=== PATIENT | female | born 1985 | race Two or more races ===

== ENCOUNTER → 2024-09-28 | Outpatient (CLI) | payer MEDICAID | END | disposition home or self-care (01) | LOC: LAB 10:14 | PROVIDERS: ATTEND Obstetrics & Gynecology | DX: O03.9 Complete or unspecified spontaneous abortion without complication (principal) | CPT/HCPCS: 36415; 84702 ==

== ENCOUNTER → 2024-09-30 | Outpatient (CLI) | payer MEDICAID ==
[2024-09-30 09:22] LABS: Basophils # (auto) 0 10 ^3/uL (0-0.2); Basophils % (auto) 0.4 % (0.0-2.0); Eosinophils # (auto) 0.1 10 ^3/uL (0-0.8); Eosinophils % (auto) 0.8 % (0.0-7.0); Hematocrit 37.9 % (36.0-46.0); Hemoglobin 12.7 g/dL (12.2-16.2); Lymphocytes % (auto) 19.5 % (10.0-50.0); Mean Corpuscular Hemoglobin 30.2 pg (28.0-32.0); Mean Corpuscular Hgb Conc. 33.4 g/dL (32.0-36.0); Mean Corpuscular Volume 90.5 fL (80.0-100.0); Monocytes # (auto) 0.4 10 ^3/uL (0-1.3); Monocytes % (auto) 4.4 % (0.0-12.0); Neutrophils # (auto) 7.7 10 ^3/uL (1.6-8.6); Neutrophils % (auto) 74.9 % (37.0-80.0); Nucleated Red Blood Cells % 0.1 %; Platelet Count (auto) 284 10^3/uL (140-450); Red Blood Cells 4.19 10^6/uL (4.0-5.20); Red Cell Distribution Width 14.3 % (11.8-14.3); White Blood Cell 10.2 10^3/uL (4.4-10.8)
[2024-09-30 09:37] LABS: Amphetamine Screen, Urine Neg (NEGATIVE); Barbiturate Scree,Urine Neg (NEGATIVE); Benzodiazephine Screen, Urine Neg (NEGATIVE); Cannabinoid Screen, Urine Neg (NEGATIVE); Cocaine Screen, Urine Neg (NEGATIVE); Opiate Scree,Urine Neg (NEGATIVE); Phencyclidine Screen, Urine Neg (NEGATIVE)
[2024-09-30 09:43] LABS: Alanine Aminotransferase 13 U/L (7-40); Albumin 4.2 g/dL (3.2-4.8); Alkaline Phosphatase 94 U/L (46-116); Anion Gap 8 (5-15); Aspartate Aminotransferase 9 U/L (13-40); BUN/Creatinine Ratio 10.6 (10.0-20.0); Bilirubin, Total 0.4 mg/dL (0.2-1.0); Blood Urea Nitrogen 7 mg/dL (9-23); Calcium 9.3 mg/dL (8.7-10.4); Carbon Dioxide 27 mmol/L (20-31); Chloride 104 mmol/L (98-107); Cholesterol 186 mg/dL (< 200); Glucose 108 mg/dL (74-106); HDL Cholesterol 50 mg/dL (40-59); LDL Cholesterol 124 mg/dL (< 100); Sodium 139 mmol/L (136-145); Total Protein 6.9 g/dL (5.7-8.2); Triglycerides 114 mg/dL (< 150)
[2024-09-30 09:45] LABS: Thyroid Stimulating Hormone 1.56 uIU/mL (0.55-4.78)
[2024-09-30 09:53] LABS: Beta HCG, Quantitative 12100.4 mIU/mL (1.5-4.2)
[2024-10-01 07:06] LABS: RPR Non Reactive (Non Reactive)
[2024-10-01 08:06] LABS: Varicella Zoster IgG Antibody Reactive (Non Reactive)
[2024-10-02 06:06] LABS: Chlamydia Trachomatis, NAA Negative (Negative); Neisseria gonorrhoeae, NAA Negative (Negative)
[2024-10-04 10:06] LABS: QuantiFERON-TB Gold Plus Negative (Negative)
== END | disposition home or self-care (01) ==
LOC: LAB 08:32
PROVIDERS: ATTEND Obstetrics & Gynecology
DX: O03.9 Complete or unspecified spontaneous abortion without complication (principal); Z31.430 Encounter of female for testing for genetic disease carrier status for procreative management; Z36.0 Encounter for antenatal screening for chromosomal anomalies; N39.0 Urinary tract infection, site not specified
CPT/HCPCS: 36415; 80053; 80061; 80307; 83036; 84439; 84443; 84702; 85025; 86592; 86703; 86762; 86787; 86850; 86900; 86901; 87086; 87340; 87902

== ENCOUNTER 2025-01-03 08:13 | Emergency (ER) | payer MEDICAID ==
[~2025-01-03] VITALS: Ht 152.4 cm; Wt 118.3 kg
[2025-01-03 09:08] VITALS: BP 131/68; PULSE 92; RESP 16; TEMP 97.7; O2SAT 97
--- NOTE | 2025-01-03 09:10 | ED.PDOC ---
History of Present Illness HPI Comments 39 year old female presents to the ED with a chief complaint of RT flank pain onset today (01/03/25) around 04:00. Patient states she woke up experiencing RT leg pain, believed it was due to sciatica pain, noticed pain was radiated to RT flank. Patient is currently 20 week , OBGYN Dr. Diana. She also noticed abdominal discomfort, described as contractions. PMHx HTN. Denies fever, chills, congestion, nausea, vomiting, diarrhea, heavy lifting, chest pain, shortness of breath, fall, vaginal bleeding. No other symptoms or modifying factors present at this time. Chief Complaint: Flank Pain Time Seen by MD: 08:57 Primary Care Provider: CHRISTIAN Reviewed Notes: Medications, Allergies Allergies: Coded Allergies: NO KNOWN ALLERGIES (Unverified , 01/03/25) Information Source: Patient Mode of Arrival: Ambulatory Severity: Moderate Timing: Hours Duration: Since onset Prehospital treatment: None Past Medical History PAST MEDICAL HISTORY: HTN Surgical History: Denies all surgeries WASTE DUSTER History: No Pertinent WASTE DUSTER History Family History Family History: Unknown Social History Smoker: Non-Smoker Alcohol: Denies ETOH Use Drugs: Denies Drug Use Lives In: Home Constitutional: denies: chills, diaphoresis, fatigue, fever, malaise, sweats, weakness, others EENTM: denies: blurred vision, double vision, ear bleeding, ear discharge, ear drainage, ear pain, ear ringing, eye pain, eye redness, hearing loss, mouth pain, mouth swelling, nasal discharge, nose bleeding, nose congestion, nose pain, photophobia, tearing, throat pain, throat swelling, voice changes, others Respiratory: denies: cough, hemoptysis, orthopnea, SOB at rest, shortness of breath, SOB with excertion, stridor, wheezing, others Cardiovascular: denies: chest pain, dizzy spells, diaphoresis, Dyspnea on exertion, edema, irregular heart beat, left arm pain, lightheadedness, palpitations, PND, syncope, others Gastrointestinal: denies: abdomen distended, abdominal pain, blood streaked bowels, constipated, diarrhea, dysphagia, difficulty swallowing, hematemesis, melena, nausea, poor appetite, poor fluid intake, rectal bleeding, rectal pain, vomiting, others Genitourinary: reports: flank pain (RT), ; denies: abnormal vagina bleeding, burning, dyspareunia, dysuria, frequency, hematuria, incontinence, pain, vagina discharge, urgency, others Neurological: denies: dizziness, fainting, headache, left sided numbness, left sided weakness, numbness, paresthesia, pre-existing deficit, right sided numbness, right sided weakness, seizure, speech problems, tingling, tremors, weakness, others Musculoskeletal: reports: others (RT leg pain); denies: back pain, gout, joint pain, joint swelling, muscle pain, muscle stiffness, neck pain Integumetry: denies: bruises, change in color, change in hair/nails, dryness, laceration, lesions, lumps, rash, wounds, others Allergic/Immunocompromised: denies: Difficulty Healing, Frequent Infections, Hives, Itching, others Hematologic/Lymphatic: denies: anemia, blood clots, easy bleeding, easy bruising, swollen glands, others Endocrine: denies: excessive hunger, excessive sweating, excessive thirst, excessive urination, flushing, intolerance to cold, intolerance to heat, unexplained weight gain, unexplained weight loss, others Psychiatric: denies: anxiety, bipolar disorder, depression, hopeless, panic disorder, schizophrenia, sleepless, suicidal, others All Other Systems: Reviewed and Negative Physical Exam General Appearance: No Apparent Distress, Normal HEENT: Normal ENT Inspection, Pharynx Normal, TMs Normal Neck: Full Range of Motion, Non-Tender, Normal, Normal Inspection Respiratory: Chest Non-Tender, Lungs Clear, No Accessory Muscle Use, No Respiratory Distress, Normal Breath Sounds Cardiovascular: No Edema, No JVD, No Murmur, No Gallop, Normal Peripheral Pulses, Regular Rate/Rhythm Breast Exam: Deferred Gastrointestinal: No Organomegaly, Non Tender, No Pulsatile Mass, Normal Bowel Sounds, Soft Genitalia: Deferred Pelvic: Deferred Rectal: Deferred Extremities: No calf tenderness, Normal capillary refill, Normal inspection, Normal range of motion, Non-tender, No pedal edema Musculoskeletal : Apperance: Normal Neurologic: Alert, buffet waiter/waitress II-XII nml as Tested, No Motor Deficits, Normal Affect, Normal Mood, No Sensory Deficits Cerebellar Function: Normal Reflexes: Normal Skin: Dry, Normal Color, Warm Lymphatic: No Adenopathy Was a procedure done? Was a procedure done?: No Differential Dx Considerations may include: Viral syndrome, ACS , , round ligament pain, urinary tract infection X-Ray, Labs, Meds, VS Vital Signs Date Time Temp Pulse Resp B/P (MAP) Pulse Ox O2 Delivery O2 Flow Rate FiO2 01/03/25 09:09 Room Air* 0 21 01/03/25 09:08 97.7 92 16 131/68 (89) 97 97.7 01/03/25 08:29 97.6 99 16 133/81 (98) 98 Lab Test 01/03/25 09:36 01/03/25 09:14 Range/Units Urine Color Yellow Yellow Urine Clarity Turbid H Clear Urine pH 6.5 5.0-9.0 Urine Specific [place] 1.024 1.001-1.035 Urine Protein 1+ H Negative Urine Ketones 2+ H Negative Urine Blood Negative Negative /uL Urine Nitrite Negative Negative Urine Bilirubin Negative Negative Urine Urobilinogen Normal Negative mg/dL Urine Leukocyte Esterase Negative Negative /uL Urine RBC 5 0 - 4 /hpf Urine Microscopic WBC 3 0-5 /HPF Urine Squamous Epithelial Cells Mod <5 /hpf Urine Bacteria None seen None Seen /hpf Urine Mucus Few None Seen Urine Glucose Normal Normal mg/dL White Blood Count 17.0 H 4.4-10.8 10^3/uL Red Blood Count 4.21 4.0-5.20 10^6/uL Hemoglobin 12.1 L 12.2-16.2 g/dL Hematocrit 37.0 36.0-46.0 % Mean Corpuscular Volume 87.8 80.0-100.0 fL Mean Corpuscular Hemoglobin 28.6 28.0-32.0 pg Mean Corpuscular Hemoglobin Concent 32.6 32.0-36.0 g/dL Red Cell Distribution Width 14.9 H 11.8-14.3 % Platelet Count 274 140-450 10^3/uL Mean Platelet Volume 8.5 6.9-10.8 fL Neutrophils (%) (Auto) 90.4 H 37.0-80.0 % Lymphocytes (%) (Auto) 6.4 L 10.0-50.0 % Monocytes (%) (Auto) 2.9 0.0-12.0 % Eosinophils (%) (Auto) 0.1 0.0-7.0 % Basophils (%) (Auto) 0.2 0.0-2.0 % Neutrophils # (Auto) 15.3 H 1.6-8.6 10 ^3/uL Lymphocytes # (Auto) 1.1 0.4-5.4 10 ^3/uL Monocytes # (Auto) 0.5 0-1.3 10 ^3/uL Eosinophils # (Auto) 0 0-0.8 10 ^3/uL Basophils # (Auto) 0 0-0.2 10 ^3/uL Nucleated Red Blood Cells 0.1 % Sodium Level 135 L 136-145 mmol/L Potassium Level 4.4 3.5-5.1 mmol/L Chloride Level 102 98-107 mmol/L Carbon Dioxide Level 24 20-31 mmol/L Anion Gap 9 5-15 Blood Urea Nitrogen 7 L 9-23 mg/dL Creatinine 0.66 0.550-1.02 mg/dL Glomerular Filtration Rate Calc 114 >90 mL/min BUN/Creatinine Ratio 10.6 10.0-20.0 Serum Glucose 156 H 74-106 mg/dL Calcium Level 9.4 8.7-10.4 mg/dL [place] [address] Ph: [phone] DIAGNOSTIC IMAGING Diagnostic Imaging Report : [id number] Signed PATIENT: PRITI GREY V ACCT: [id number] UNIT: [id number] : 1985 LOC: ER ROOM / BED: / AGE / SEX: 39 / F ADM STATUS: REG ER SERVICE 0901 ORDERING PHYSICIAN: BENEDICT BARBOUR MD PROCEDURE(s): OBUS - OB ULTRASOUND COMP GTR 14 WKS REASON: abdominal cramping , 20wks ORDER NUMBER(s): [id number], ACCESSION NUMBER(s): [id number] EXAM: US OB ULTRASOUND COMP GTR 14 WKS HISTORY: abdominal cramping , 20wks TECHNIQUE: Multiple real-time grayscale images of the gravid uterus with duplex Doppler color flow and M-mode spectral analysis. COMPARISON: None FINDINGS: IUP single live fetus at 19 weeks and 6 days average ultrasound age (AUA) based on composite averages of the BPD, head circumference, abdominal circumference and femur length Estimated weight 340 grams; heart rate 143 beats per minute CHRISTINA is subjectively within normal limits. Deepest pocket measures 3.6 cm. ANATOMIC SURVEY: N/a Transverse right Presentation Posterior placenta without previa or abruption Cervix is closed measuring 3.8 cm IMPRESSION: IUP single live fetus at 19 weeks and 6 days AUA corresponding to an SANDRA of 05/14/2025. No abnormality detected. ATED BY: IGNACIO PRIETO MD DICTATED DATE/TIME: 01/03/25 1028 SIGNED BY: IGNACIO PRIETO MD SIGNED DATE/TIME: 01/03/25 1028 CC: Time of 1ST Reevaluation: 09:27 Reevaluation 1ST: Unchanged Patient Education/Counseling: Diagnosis, Treatment, Prognosis Family Education/Counseling: No Family Present Additional Information The following tests were ordered, and results were reviewed by me: BMP, CBC, UA, OB ULTRASOUND COMP GTR 14 WEEKS I reviewed and agreed with the following test results read by other providers: OB ULTRASOUND COMP GTR 14 WEEKS I discussed treatment and results with medical personnel and: patient, mother Departure 1 Departure Time of Disposition: 11:10 (Patient presented with abdominal pain that was concerning for possible appendicits, gastritis, cholecystitis, colitis, gastroenteritis, or orther possible surgical emergency. Data: 1. I ordered and reviewed the result of at least 3 labs including a CBC, BMP, and Urinalysis. 2. I independently interpreted the following tests: Ultrasound is concerning for normal .Risk:This patient has a high risk of morbidity due to further diagnostic testing or treatment and may suffer from an acute abdominal process disorder. Fortunately workup reveals normal and likely gastroenteritis and patient can be safely discharged to home with outpatient follow up.) Impression: Primary Impression: Gastroenteritis Additional Impressions: Qualified Codes: Z3A.20 - 20 weeks gestation of Abdominal cramping Disposition: 01 HOME / SELF CARE / HOMELESS Condition: Stable Additional Instructions: You likely have gastroenteritis. It is important to stay well hydrated and well rested. Your ultrasound shows a healthy . This usually resolves within 1 week. If your symptoms worsen or you have any other concerns please return to the ER. Discharged With: Self Critical Care Note Critical Care Time?: No Stability Stability form required: No I personally scribed for BENEDICT BARBOUR MD ([email or web address]) on 01/03/25 at 09:10. Electronically submitted by Jessica [email or web address]). I personally scribed for BENEDICT BARBOUR MD ([email or web address]) on 01/03/25 at 10:04. Electronically submitted by Jessica Hamilton ([email or web address]). I personally scribed for BENEDICT BARBOUR MD ([email or web address]) on 01/03/25 at 10:55. Electronically submitted by Jessica Hamilton [email or web address]). BENEDICT BARBOUR MD Jan 03, 2025 09:10
[2025-01-03 09:35] LABS: Basophils # (auto) 0 10 ^3/uL (0-0.2); Basophils % (auto) 0.2 % (0.0-2.0); Eosinophils # (auto) 0 10 ^3/uL (0-0.8); Eosinophils % (auto) 0.1 % (0.0-7.0); Hemoglobin 12.1 g/dL (12.2-16.2); Lymphocytes # (auto) 1.1 10 ^3/uL (0.4-5.4); Lymphocytes % (auto) 6.4 % (10.0-50.0); Mean Corpuscular Hemoglobin 28.6 pg (28.0-32.0); Mean Corpuscular Hgb Conc. 32.6 g/dL (32.0-36.0); Mean Corpuscular Volume 87.8 fL (80.0-100.0); Monocytes # (auto) 0.5 10 ^3/uL (0-1.3); Monocytes % (auto) 2.9 % (0.0-12.0); Neutrophils # (auto) 15.3 10 ^3/uL (1.6-8.6); Neutrophils % (auto) 90.4 % (37.0-80.0); Nucleated Red Blood Cells % 0.1 %; Platelet Count (auto) 274 10^3/uL (140-450); Red Blood Cells 4.21 10^6/uL (4.0-5.20); Red Cell Distribution Width 14.9 % (11.8-14.3)
[2025-01-03 09:38] LABS: Urine Bacteria None Seen /hpf (None Seen)
[2025-01-03 09:47] LABS: Chloride 102 mmol/L (98-107); Potassium 4.4 mmol/L (3.5-5.1)
[2025-01-03 09:48] LABS: Anion Gap 9 (5-15); Calcium 9.4 mg/dL (8.7-10.4); Carbon Dioxide 24 mmol/L (20-31)
[2025-01-03 09:53] LABS: BUN/Creatinine Ratio 10.6 (10.0-20.0)
[2025-01-03 09:58] LABS: Blood Urea Nitrogen 7 mg/dL (9-23); Glucose 156 mg/dL (74-106); Sodium 135 mmol/L (136-145)
[2025-01-03 10:26] LABS: Urine Blood Negative /uL (Negative); Urine Clarity Turbid (Clear); Urine Color Yellow (Yellow); Urine Mucus FEW (None Seen); Urine Protein, UAD 1+ (Negative); Urine Specific Gravity 1.024 (1.001-1.035); Urine Squamous Epithelial Cell MOD /hpf (<5); Urine Urobilinogen Normal (Negative); Urine WBC 3 /HPF (0-5); Urine pH 6.5 (5.0-9.0)
--- NOTE | 2025-01-03 10:31 | DVH ---
EXAM: US OB ULTRASOUND COMP GTR 14 WKS HISTORY: abdominal cramping , 20wks TECHNIQUE: Multiple real-time grayscale images of the gravid uterus with duplex Doppler color flow an d M-mode spectral analysis. COMPARISON: None FINDINGS: IUP single live fetus at 19 weeks and 6 days average ultrasound age (AUA) based on composite averages of the BPD, head circumference, abdominal circumference and femur length Estimated weight 340 grams; heart rate 143 beats per minute CHRISTINA is subjectively within normal limits. Deepest pocket measures 3.6 cm. ANATOMIC SURVEY: N/a Transverse right Presentation Posterior placenta without previa or abruption Cervix is closed measuring 3.8 cm IMPRESSION: IUP single live fetus at 19 weeks and 6 days AUA corresponding to an SANDRA of 05/14/2025. No abnormality detected.
== END 2025-01-03 11:25 | disposition home or self-care (01) ==
LOC: ER 08:13
DX: O99.612 Diseases of the digestive system complicating pregnancy, second trimester (principal); O26.892 Other specified pregnancy related conditions, second trimester; K52.9 Noninfective gastroenteritis and colitis, unspecified; R10.9 Unspecified abdominal pain; I10 Essential (primary) hypertension; Z3A.19 19 weeks gestation of pregnancy
CPT/HCPCS: 36415; 76805; 80048; 81001; 85025